=== PATIENT | female | born 2005 ===

== ENCOUNTER 2024-05-15 16:51 | Emergency (ER) | payer SELFPAY ==
[~2024-05-15] VITALS: Ht 154.9 cm; Wt 52.7 kg
[2024-05-15 16:58] VITALS: BP 118/63; PULSE 94; RESP 18; TEMP 98.6
== END 2024-05-15 18:03 | disposition left against medical advice (07) ==
LOC: EMS 16:51
DX: N93.9 Abnormal uterine and vaginal bleeding, unspecified (principal); R55 Syncope and collapse; Z53.21 Procedure and treatment not carried out due to patient leaving prior to being seen by health care provider
CPT/HCPCS: 76801